=== PATIENT | male | born 1970 | race American Indian/Alaskan Native ===

== ENCOUNTER 2018-09-12 21:42 | Day surgery (SDC) | payer OTHER ==
[2018-09-12] MEDS ORDERED: Sodium Chloride 0.9% 1,000 ML IV ONE (22:17)
[2018-09-12] MEDS ORDERED: Ketorolac 30 MG/ML SDV IVPUSH ONE (22:17)
[2018-09-12] MEDS ORDERED: Ondansetron 4 MG/2 ML SDV IVPUSH ONE (22:17)
[2018-09-12] MEDS ORDERED: Sodium Chloride 0.9% 10 ML Syringe FLUSH PRN (22:17)
[2018-09-12] MEDS ORDERED: Sodium Chloride 0.9% 2.5 ML Syringe FLUSH PRN (22:17)
[2018-09-12] MEDS ORDERED: Morphine 2 MG/ML Syringe IVPUSH ONE (22:17)
--- NOTE | 2018-09-12 22:20 | EDM.PDOC ---
ED HPI GENERAL MEDICAL PROBLEM - General Chief Complaint: Abdominal Pain Stated Complaint: ABDOMINAL PAIN Time Seen by Provider: 09/12/18 22:04 - History of Present Illness INITIAL COMMENTS - FREE TEXT/NARRATIVE: HISTORY AND PHYSICAL: History of present illness: The patient is a 47-year-old male with no GI history and no abdominal surgical history who presents with onset of diarrhea and right lower quadrant pain that woke him from sleep this morning. The patient a complete normal day yesterday and slept fine and this morning woke up with the urge to have a bowel movement and he went into the toilet and had mushy diarrhea which was not black or bloody and sudden onset of right lower quadrant pain. He has had the pain all day and it has not changed in character and he has had a total of 6 episodes of diarrhea none of which was black or bloody that he can recall. He said no fever but has felt chilly and he has had nausea but no vomiting. He has no flank pain and no urinary symptoms. The patient had no recent trauma and no upper respiratory tract infections recently. He has no chest pain or shortness of breath and he does not feel dizzy or lightheaded. He has not tolerated much by mouth today because he has had no appetite due to the nausea and the pain. He tried [id number] Imodium for the diarrhea as well as Excedrin. Review of systems: As per history of present illness and below otherwise all systems reviewed and negative. Past medical history: As per history of present illness and as reviewed below otherwise noncontributory. Surgical history: As per history of present illness and as reviewed below otherwise noncontributory. Social history: No reported history of drug or alcohol abuse. Family history: As per history of present illness and as reviewed below otherwise noncontributory. Physical exam: General: Well-developed well-nourished man who is nontoxic but looks uncomfortable in the room. Vital signs are noted by me HEENT: Atraumatic, normocephalic, negative for conjunctival pallor or scleral icterus, mucous membranes tacky throat clear, neck supple, nontender, trachea midline. Lungs: Clear to auscultation, breath sounds equal bilaterally, chest nontender. Heart: S1S2, regular rate and rhythm no overt murmurs Abdomen: Soft, nondistended, bowel sounds are slightly hyperactive and there is no tympany. There is diffuse abdominal tenderness but is more exquisite in the right lower quadrant with some voluntary guarding but no rebound Negative for masses or hepatosplenomegaly. Negative for costovertebral tenderness. Pelvis: Stable nontender. Genitourinary: Deferred. Rectal: Deferred. Extremities: Atraumatic, negative for cords or calf pain. Neurovascular unremarkable. Neuro: Awake, alert, oriented. Cranial nerves II through XII unremarkable. Cerebellum unremarkable. Motor and sensory unremarkable throughout. Exam nonfocal. Diagnostics: CBC CMP lipase UA with reflex stool for culture if the patient produces CT scan of the abdomen and pelvis Therapeutics: IV placement IV fluids Zofran Toradol morphine Zosyn lactated Ringer's Patient currently is totally nursing that his pain is down to a 2/10 and he has not had it being any nausea or vomiting. We are currently awaiting his CT scan results and he has not produced any stool for study at this point. 0020: After CT scan results were obtained Dr. Maier was called and he will come in to see the patient and discuss surgery. The patient and at bedside are also aware of testing results and plan for surgery this evening. Zosyn will be given as well as lactated Ringer's Impression: Acute appendicitis Definitive disposition and diagnosis as appropriate pending reevaluation and review of above. RLQ abdomen Pain Score (Numeric/FACES): 8 - Related Data Allergies Allergy/AdvReac Type Severity Reaction Status Date / Time codeine Allergy Nausea and Verified 09/12/18 22:41 Vomiting Home Meds: Home Meds Multivitamin [Multivitamins] 1 cap PO DAILY 09/12/18 [History] Past Medical History - Past Health History Medical/Surgical History: Denies Medical/Surgical History Social & Family History - Family History Family Medical History: Noncontributory - Tobacco Use Smoking Status *Q: Never Smoker - Recreational Drug Use Recreational Drug Use: No ED ROS GENERAL - Review of Systems Review Of Systems: ROS reveals no pertinent complaints other than HPI. ED EXAM, GENERAL - Physical Exam Exam: See Below (See dictation) Course - Vital Signs Last Recorded V/S: Last Vital Signs Temp 36.6 C 09/12/18 23:45 Pulse 69 09/12/18 23:45 Resp 18 09/12/18 23:45 BP 128/81 09/12/18 23:45 Pulse Ox 98 09/12/18 23:45 - Orders/Labs/Meds Orders: Active Orders 24 hr Category Date Time Status Patient Status [ADT] Stat ADT 09/13/18 00:23 Ordered CULTURE STOOL + CAMPY+SHIGATOX [RM] Stat Lab 09/12/18 22:17 Ordered Lactated Ringers @ 150 MLS/HR(1,000ml) Med 09/13/18 00:30 Ordered Lactated Ringers [Ringers, Lactated] 1,000 ml IV ASDIRECTED Piperacillin/Tazobactam [Piperacil-Tazobact] 4.5 gm Med 09/13/18 00:20 Ordered Sodium Chloride 0.9% [Normal Saline] 100 ml IV ONETIME Sodium Chloride 0.9% [Saline Flush] Med 09/12/18 22:17 Active 10 ml FLUSH ASDIRECTED PRN Sodium Chloride 0.9% [Saline Flush] Med 09/12/18 22:17 Active 2.5 ml FLUSH ASDIRECTED PRN Saline Lock Insert [OM.PC] Stat Oth 09/12/18 22:17 Ordered Medication Orders Lactated Ringer's (Ringers, Lactated) 1,000 mls @ 150 mls/hr IV ASDIRECTED ZACARIAS Piperacillin Sod/Tazobactam (Sod 4.5 gm/ Sodium Chloride) 100 mls @ 100 mls/hr IV ONETIME ONE Stop: 09/13/18 01:19 Sodium Chloride (Saline Flush) 10 ml FLUSH ASDIRECTED PRN PRN Reason: Keep Vein Open Sodium Chloride (Saline Flush) 2.5 ml FLUSH ASDIRECTED PRN PRN Reason: Keep Vein Open Labs: Laboratory Tests 09/12/18 09/12/18 09/12/18 Range/Units 22:30 22:35 22:35 WBC 16.01 H (4.0-11.0) K/uL RBC 5.41 (4.50-5.90) M/uL Hgb 16.4 (13.0-17.0) g/dL Hct 47.9 (38.0-50.0) % MCV 88.5 (80.0-98.0) fL MCH 30.3 (27.0-32.0) pg MCHC 34.2 (31.0-37.0) g/dL RDW Std Deviation 43.6 (28.0-62.0) fl RDW Coeff of Deisy 14 (11.0-15.0) % Plt Count 291 (150-400) K/uL MPV 10.20 (7.40-12.00) fL Neut % (Auto) 82.9 H (48.0-80.0) % Lymph % (Auto) 8.4 L (16.0-40.0) % [place] % (Auto) 8.4 (0.0-15.0) % Eos % (Auto) 0.2 (0.0-7.0) % Baso % (Auto) 0.1 (0.0-1.5) % Neut # (Auto) 13.3 H (1.4-5.7) K/uL Lymph # (Auto) 1.3 (0.6-2.4) K/uL [place] # (Auto) 1.4 H (0.0-0.8) K/uL Eos # (Auto) 0.0 (0.0-0.7) K/uL Baso # (Auto) 0.0 (0.0-0.1) K/uL Nucleated RBC % 0.0 /100WBC Nucleated RBCs # 0 K/uL Sodium 140 (136-148) mmol/L Potassium 3.9 (3.5-5.1) mmol/L Chloride 103 (98-107) mmol/L Carbon Dioxide 26.9 (21.0-32.0) mmol/L BUN 13 (7.0-18.0) mg/dL Creatinine 1.1 (0.8-1.3) mg/dL Est Cr Clr Drug Dosing 95.84 mL/min Estimated GFR (MDRD) > 60.0 ml/min Glucose 122 H (74-106) mg/dL Calcium 8.9 (8.5-10.1) mg/dL Total Bilirubin 2.0 H (0.2-1.0) mg/dL AST 18 (15-37) IU/L ALT 53 (14-63) IU/L Alkaline Phosphatase 92 (46-116) U/L Total Protein 8.1 (6.4-8.2) g/dL Albumin 4.4 (3.4-5.0) g/dL Globulin 3.7 (2.6-4.0) g/dL Albumin/Globulin Ratio 1.2 (0.9-1.6) Lipase 70 L (73-393) U/L Urine Color YELLOW Urine Appearance CLEAR Urine pH 6.0 (5.0-8.0) Ur Specific [place] >= 1.030 (1.001-1.035) Urine Protein TRACE H (NEGATIVE) mg/dL Urine Glucose (UA) NEGATIVE (NEGATIVE) mg/dL Urine Ketones NEGATIVE (NEGATIVE) mg/dL Urine Occult Blood NEGATIVE (NEGATIVE) Urine Nitrite NEGATIVE (NEGATIVE) Urine Bilirubin SMALL H (NEGATIVE) Urine Ictotest NEGATIVE Urine Urobilinogen 0.2 (<2.0) EU/dL Ur Leukocyte Esterase NEGATIVE (NEGATIVE) Urine RBC 0-1 (0-2/HPF) Urine WBC 0-1 (0-5/HPF) Ur Epithelial Cells RARE (NONE-FEW) Urine Bacteria RARE (NEGATIVE) Meds: Medications Generic Name Dose Route Start Last Admin Trade Name Sandy PRN Reason Stop Dose Admin Lactated Ringer's 1,000 mls @ 150 mls/hr 09/13/18 00:30 Ringers, Lactated IV ASDIRECTED ZACARIAS Piperacillin Sod/Tazobactam 100 mls @ 100 mls/hr 09/13/18 00:20 Sod 4.5 gm/ Sodium Chloride IV 09/13/18 01:19 ONETIME ONE Sodium Chloride 10 ml 09/12/18 22:17 Saline Flush FLUSH ASDIRECTED PRN Keep Vein Open Sodium Chloride 2.5 ml 09/12/18 22:17 Saline Flush FLUSH ASDIRECTED PRN Keep Vein Open Discontinued Medications Generic Name Dose Route Start Last Admin Trade Name Sandy PRN Reason Stop Dose Admin Sodium Chloride 1,000 mls @ 999 mls/hr 09/12/18 22:17 09/12/18 22:41 Normal Saline IV 09/12/18 23:17 999 mls/hr STAT ONE Administration Iopamidol 100 ml 09/12/18 23:38 09/12/18 23:38 Isovue Multipack-370 (76%) IVPUSH 09/12/18 23:39 100 ml ONETIME STA Administration Ketorolac Tromethamine 30 mg 09/12/18 22:17 09/12/18 22:46 Toradol IVPUSH 09/12/18 22:18 30 mg ONETIME ONE Administration Morphine Sulfate 4 mg 09/12/18 22:17 09/12/18 22:46 Morphine IVPUSH 09/12/18 22:18 4 mg ONETIME ONE Administration Ondansetron HCl 4 mg 09/12/18 22:17 09/12/18 22:46 Zofran IVPUSH 09/12/18 22:18 4 mg ONETIME ONE Administration Departure - Departure Time of Disposition: 00:24 Disposition: Still A Patient 30 Condition: Good Clinical Impression: Appendicitis Qualifiers: Appendicitis type: acute appendicitis Acute appendicitis type: unspecified acute appendicitis type Qualified Code(s): K35.80 - Unspecified acute appendicitis - Discharge Information Referrals: Cece Doss, [facility] [employer] [Primary Care Provider] - Forms: ED Department Discharge - My Orders Last 24 Hours: My Active Orders 09/12/18 22:17 CULTURE STOOL + CAMPY+SHIGATOX [RM] Stat Sodium Chloride 0.9% [Saline Flush] 10 ml FLUSH ASDIRECTED PRN Sodium Chloride 0.9% [Saline Flush] 2.5 ml FLUSH ASDIRECTED PRN Saline Lock Insert [OM.PC] Stat 09/13/18 00:20 Piperacillin/Tazobactam [Piperacil-Tazobact] 4.5 gm Sodium Chloride 0.9% [ Normal Saline] 100 ml IV ONETIME 09/13/18 00:23 Patient Status [ADT] Stat 09/13/18 00:30 Lactated Ringers @ 150 MLS/HR(1,000ml) Lactated Ringers [Ringers, Lactated] 1, 000 ml IV ASDIRECTED - Assessment/Plan Last 24 Hours: My Active Orders 09/12/18 22:17 CULTURE STOOL + CAMPY+SHIGATOX [RM] Stat Sodium Chloride 0.9% [Saline Flush] 10 ml FLUSH ASDIRECTED PRN Sodium Chloride 0.9% [Saline Flush] 2.5 ml FLUSH ASDIRECTED PRN Saline Lock Insert [OM.PC] Stat 09/13/18 00:20 Piperacillin/Tazobactam [Piperacil-Tazobact] 4.5 gm Sodium Chloride 0.9% [ Normal Saline] 100 ml IV ONETIME 09/13/18 00:23 Patient Status [ADT] Stat 09/13/18 00:30 Lactated Ringers @ 150 MLS/HR(1,000ml) Lactated Ringers [Ringers, Lactated] 1, 000 ml IV ASDIRECTED
[2018-09-12 23:05] LABS: CHLORIDE,CL 103 mmol/L (98-107); SODIUM,NA 140 mmol/L (136-148)
[2018-09-12] MEDS ORDERED: Iopamidol 755 MG/ML 500 ML Multipack Bottle IVPUSH STA (23:38)
--- NOTE | 2018-09-13 00:07 | CT ---
INDICATION: Right lower quadrant pain TECHNIQUE: CT abdomen and pelvis acquired with IV contrast. 100 cc Isovue 370 COMPARISON: None FINDINGS: Lower chest: Unremarkable. Liver: Unremarkable. Spleen: Unremarkable. Pancreas: Unremarkable. Gallbladder and bile ducts: Unremarkable. Kidneys: Unremarkable. Adrenal glands: Unremarkable. GI tract: Unremarkable. Thick-walled and dilated appendix measuring up to 13 millimeters in diameter with periappendiceal fluid and fat stranding consistent with acute appendicitis. 12 millimeter proximal appendicolith noted. Vascular structures: Unremarkable. Lymph nodes: Unremarkable. Miscellaneous: Unremarkable. No free air or significant free fluid. Pelvic Organs: Unremarkable. Bones: Unremarkable for age. IMPRESSION: Findings consistent with acute appendicitis. Dictated by Shaggy Hawley MD @ 09/13/2018 12:06:01 AM Please note that all CT scans at this facility use dose modulation, iterative reconstruction, and/or weight-based dosing when appropriate to reduce radiation dose to as low as reasonably achievable. Dictated by: Shaggy Hawley MD @ 09/13/2018 00:06:07 (Electronically Signed)
[2018-09-13] MEDS ORDERED: Piperacillin/Tazobactam 4.5 GM in Sodium Chloride 0.9% 100 ML IV ONE (00:20)
[2018-09-13] MEDS ORDERED: Lactated Ringers 1,000 ML IV SCH ×3 (00:30→04:30)
[2018-09-13] MEDS ORDERED: Midazolam 1 MG/ML 2 ML SDV ONE ×2 (01:12→01:14)
[2018-09-13] MEDS ORDERED: Propofol 200 MG/20 ML SDV ONE (01:12)
[2018-09-13] MEDS ORDERED: fentaNYL 250 MCG/5 ML SDV ONE (01:12)
--- NOTE | 2018-09-13 01:15 | PCM.SN ---
- Free Text/Narrative Note: pt seen, chart reviewed, acute appy, would benefit from timely surg intervention ; proceed w appendectomy, lap vs open, rb dw pt re bleeding/infection/damage to nearby organs/postop course/pain management; of note, pt has a umb hernia, will need to be repair in the future; pt voiced understanding, proceed w surgery, iv abx, LR 150, shave, consent; [id number]
--- NOTE | 2018-09-13 01:29 | PCM.PREANE ---
Preanesthetic Assessment - Procedure Proposed Procedure: lap appendectomy - Anesthesia/Transfusion/Family Hx Anesthesia History: No Prior Anesthesia Family History of Anesthesia Reaction: No - Review of Systems General: No Symptoms Pulmonary: No Symptoms Cardiovascular: No Symptoms Gastrointestinal: Abdominal Pain Neurological: No Symptoms Other: Reports: Neck Pain - Physical Assessment O2 Sat by Pulse Oximetry: 96 Respiratory Rate: 18 Vital Signs: Last Vital Signs Temp 98 F 09/13/18 00:30 Pulse 68 09/13/18 00:30 Resp 18 09/13/18 00:30 BP 119/75 09/13/18 00:30 Pulse Ox 96 09/13/18 00:30 Height: 6 ft 1 in Weight: 101 kg ASA Class: 2E Mental Status: Alert & Oriented x3 Airway Class: Mallampati = 2 Dentition: Reports: Normal Dentition ROM/Head Extension: Full Lungs: Normal Respiratory Effort Cardiovascular: Regular Rate, Regular Rhythm - Lab Values: Laboratory Last Values WBC 16.01 K/uL (4.0-11.0) H 09/12/18 22:35 RBC 5.41 M/uL (4.50-5.90) 09/12/18 22:35 Hgb 16.4 g/dL (13.0-17.0) 09/12/18 22:35 Hct 47.9 % (38.0-50.0) 09/12/18 22:35 MCV 88.5 fL (80.0-98.0) 09/12/18 22:35 MCH 30.3 pg (27.0-32.0) 09/12/18 22:35 MCHC 34.2 g/dL (31.0-37.0) 09/12/18 22:35 RDW Std Deviation 43.6 fl (28.0-62.0) 09/12/18 22:35 RDW Coeff of Deisy 14 % (11.0-15.0) 09/12/18 22:35 Plt Count 291 K/uL (150-400) 09/12/18 22:35 MPV 10.20 fL (7.40-12.00) 09/12/18 22:35 Neut % (Auto) 82.9 % (48.0-80.0) H 09/12/18 22:35 Lymph % (Auto) 8.4 % (16.0-40.0) L 09/12/18 22:35 [place] % (Auto) 8.4 % (0.0-15.0) 09/12/18 22:35 Eos % (Auto) 0.2 % (0.0-7.0) 09/12/18 22:35 Baso % (Auto) 0.1 % (0.0-1.5) 09/12/18 22:35 Neut # (Auto) 13.3 K/uL (1.4-5.7) H 09/12/18 22:35 Lymph # (Auto) 1.3 K/uL (0.6-2.4) 09/12/18 22:35 [place] # (Auto) 1.4 K/uL (0.0-0.8) H 09/12/18 22:35 Eos # (Auto) 0.0 K/uL (0.0-0.7) 09/12/18 22:35 Baso # (Auto) 0.0 K/uL (0.0-0.1) 09/12/18 22:35 Nucleated RBC % 0.0 /100WBC 09/12/18 22:35 Nucleated RBCs # 0 K/uL 09/12/18 22:35 Sodium 140 mmol/L (136-148) 09/12/18 22:35 Potassium 3.9 mmol/L (3.5-5.1) 09/12/18 22:35 Chloride 103 mmol/L (98-107) 09/12/18 22:35 Carbon Dioxide 26.9 mmol/L (21.0-32.0) 09/12/18 22:35 BUN 13 mg/dL (7.0-18.0) 09/12/18 22:35 Creatinine 1.1 mg/dL (0.8-1.3) 09/12/18 22:35 Est Cr Clr Drug Dosing 95.84 mL/min 09/12/18 22:35 Estimated GFR (MDRD) > 60.0 ml/min 09/12/18 22:35 Glucose 122 mg/dL (74-106) H 09/12/18 22:35 Calcium 8.9 mg/dL (8.5-10.1) 09/12/18 22:35 Total Bilirubin 2.0 mg/dL (0.2-1.0) H 09/12/18 22:35 AST 18 IU/L (15-37) 09/12/18 22:35 ALT 53 IU/L (14-63) 09/12/18 22:35 Alkaline Phosphatase 92 U/L (46-116) 09/12/18 22:35 Total Protein 8.1 g/dL (6.4-8.2) 09/12/18 22:35 Albumin 4.4 g/dL (3.4-5.0) 09/12/18 22:35 Globulin 3.7 g/dL (2.6-4.0) 09/12/18 22:35 Albumin/Globulin Ratio 1.2 (0.9-1.6) 09/12/18 22:35 Lipase 70 U/L (73-393) L 09/12/18 22:35 Urine Color YELLOW 09/12/18 22:30 Urine Appearance CLEAR 09/12/18 22:30 Urine pH 6.0 (5.0-8.0) 09/12/18 22:30 Ur Specific [place] >= 1.030 (1.001-1.035) 09/12/18 22:30 Urine Protein TRACE mg/dL (NEGATIVE) H 09/12/18 22:30 Urine Glucose (UA) NEGATIVE mg/dL (NEGATIVE) 09/12/18 22:30 Urine Ketones NEGATIVE mg/dL (NEGATIVE) 09/12/18 22:30 Urine Occult Blood NEGATIVE (NEGATIVE) 09/12/18 22:30 Urine Nitrite NEGATIVE (NEGATIVE) 09/12/18 22:30 Urine Bilirubin SMALL (NEGATIVE) H 09/12/18 22:30 Urine Ictotest NEGATIVE 09/12/18 22:30 Urine Urobilinogen 0.2 EU/dL (<2.0) 09/12/18 22:30 Ur Leukocyte Esterase NEGATIVE (NEGATIVE) 09/12/18 22:30 Urine RBC 0-1 (0-2/HPF) 09/12/18 22:30 Urine WBC 0-1 (0-5/HPF) 09/12/18 22:30 Ur Epithelial Cells RARE (NONE-FEW) 09/12/18 22:30 Urine Bacteria RARE (NEGATIVE) 09/12/18 22:30 - Allergies Allergies/Adverse Reactions: Allergies Allergy/AdvReac Type Severity Reaction Status Date / Time codeine Allergy Nausea and Verified 09/12/18 22:41 Vomiting - Blood Blood Available: No Product(s) Available: None - Anesthesia Plan Pre-Op Medication Ordered: None - Acknowledgements Anesthesia Type Planned: General Anesthesia Pt an Appropriate Candidate for the Planned Anesthesia: Yes Alternatives and Risks of Anesthesia Discussed w Pt/Guardian: Yes Pt/Guardian Understands and Agrees with Anesthesia Plan: Yes PreAnesthesia Questionnaire - Past Health History Medical/Surgical History: Denies Medical/Surgical History - SUBSTANCE USE Smoking Status *Q: Never Smoker Recreational Drug Use History: No - HOME MEDS Home Medications: Home Meds Multivitamin [Multivitamins] 1 cap PO DAILY 09/12/18 [History] - CURRENT (IN HOUSE) MEDS Current Meds: Current Medications Lactated Ringer's (Ringers, Lactated) 1,000 mls @ 150 mls/hr IV ASDIRECTED ZACARIAS Last Admin: 09/13/18 00:29 Dose: 150 mls/hr Lactated Ringer's (Ringers, Lactated) 1,000 mls @ 125 mls/hr IV ASDIRECTED [facility] Sodium Chloride (Saline Flush) 10 ml FLUSH ASDIRECTED PRN PRN Reason: Keep Vein Open Sodium Chloride (Saline Flush) 2.5 ml FLUSH ASDIRECTED PRN PRN Reason: Keep Vein Open Discontinued Medications Fentanyl (Sublimaze) Confirm Administered Dose 250 mcg .ROUTE .STK-MED ONE Stop: 09/13/18 01:13 Sodium Chloride (Normal Saline) 1,000 mls @ 999 mls/hr IV STAT ONE Stop: 09/12/18 23:17 Last Admin: 09/12/18 22:41 Dose: 999 mls/hr Piperacillin Sod/Tazobactam (Sod 4.5 gm/ Sodium Chloride) 100 mls @ 100 mls/hr IV ONETIME ONE Stop: 09/13/18 01:19 Last Admin: 09/13/18 00:29 Dose: 100 mls/hr Iopamidol (Isovue Multipack-370 (76%)) 100 ml IVPUSH ONETIME STA Stop: 09/12/18 23:39 Last Admin: 09/12/18 23:38 Dose: 100 ml Ketorolac Tromethamine (Toradol) 30 mg IVPUSH ONETIME ONE Stop: 09/12/18 22:18 Last Admin: 09/12/18 22:46 Dose: 30 mg Midazolam HCl (Versed 1 Mg/Ml) Confirm Administered Dose 2 mg .ROUTE .STK-MED ONE Stop: 09/13/18 01:13 Midazolam HCl (Versed 1 Mg/Ml) Confirm Administered Dose 2 mg .ROUTE .STK-MED ONE Stop: 09/13/18 01:15 Morphine Sulfate (Morphine) 4 mg IVPUSH ONETIME ONE Stop: 09/12/18 22:18 Last Admin: 09/12/18 22:46 Dose: 4 mg Ondansetron HCl (Zofran) 4 mg IVPUSH ONETIME ONE Stop: 09/12/18 22:18 Last Admin: 09/12/18 22:46 Dose: 4 mg Propofol (Diprivan 20 Ml) Confirm Administered Dose 200 mg .ROUTE .STK-MED ONE Stop: 09/13/18 01:13
[2018-09-13] MEDS ORDERED: Bupivacaine 25%/EPINEPHrine/PF 30 ML ONE (01:30)
[2018-09-13] MEDS ORDERED: Dexamethasone 4 MG/ML 5 ML MDV ONE (02:21)
[2018-09-13] MEDS ORDERED: Glycopyrrolate 0.2 MG/ML SDV ONE (02:21)
[2018-09-13] MEDS ORDERED: Rocuronium 100 MG/10 ML Syringe ONE (02:21)
[2018-09-13] MEDS ORDERED: Ondansetron 4 MG/2 ML SDV ONE (02:21)
[2018-09-13] MEDS ORDERED: Neostigmine Methylsulfate 1 MG/ML 5 ML Syringe ONE (02:21)
[2018-09-13] MEDS ORDERED: fentaNYL 100 MCG/2 ML SDV IVPUSH PRN (02:28)
[2018-09-13] MEDS ORDERED: Promethazine 25 MG/ML SDV IM ONE (02:28)
[2018-09-13] MEDS ORDERED: HYDROmorphone 2 MG/ML SDV IVPUSH ONE (02:28)
[2018-09-13] MEDS ORDERED: Meperidine PF 25 MG/ML Syringe IVPUSH ONE (02:28)
[2018-09-13] MEDS ORDERED: Meperidine PF 25 MG/ML Syringe ONE (04:02)
--- NOTE | 2018-09-13 04:16 | PCM.OPNOTE ---
- General Post-Op/Procedure Note Date of Surgery/Procedure: 09/13/18 Operative Procedure(s): lap appy Findings: appendix is dilated and indulated, w appendicolith; microperforation noted; [id number] Pre Op Diagnosis: acute appendicitis Post-Op Diagnosis: Same Anesthesia Technique: General ET Tube Primary Surgeon: Syed Maier Pathology: sent Surgical Drain/Tube Type: Damion [place] Flat Drain Complications: None Condition: Fair
[2018-09-13] MEDS ORDERED: Ondansetron 4 MG/2 ML SDV IVPUSH PRN (04:18)
--- NOTE | 2018-09-13 04:22 | CONS ---
DATE OF CONSULTATION: 09/13/2018 DATE OF : 1970 PRIMARY CARE PHYSICIAN: Cece Doss NP This is a consult from Mally Bernard MD, in the emergency room. CONCERNING QUESTION: Appendicitis. HISTORY OF PRESENT ILLNESS: The patient is a 47 years old gentleman, complained of a 24-hour history of acute onset of abdominal pain, subsequently migrated to the right lower quadrant and also with diarrhea, and pain going on for 24 hours with no resolution. Sought help in the emergency room, got a CT scan which shows dilated appendix with dirty stranding periumbilical fat, and also appendicolith consistent with acute appendicitis. Surgery was then called. The patient denied prior episode and remarked the pain is 2/10. PAST MEDICAL HISTORY: Significant for no diabetes, AL, CVA, hypertension. PAST SURGICAL HISTORY: No abdominal surgery. ALLERGIES AND MEDICATION: Please refer to nursing notes for details. REVIEW OF SYSTEMS: Same as history of present illness. FAMILY HISTORY: Noncontributory. SOCIAL HISTORY: Denied tobacco or alcohol abuse. PHYSICAL EXAMINATION: GENERAL: A very pleasant gentleman, even laughing with the doctor while taking history. HEENT: Normocephalic and atraumatic. Sclerae are anicteric. LUNGS: Clear to auscultation. HEART: Regular rate and rhythm. ABDOMEN: Soft, nondistended. No pulsating, tender midline abdominal structure, and no surgical scar. Umbilical hernia with skin intact. Exquisite tenderness on the McBurney point. No rebound tenderness. Positive Rovsing sign. LABORATORY DATA: Upon consultation, white count 16, H and H are 16 and 48, and platelets are 291. Sodium 140, potassium 3.9, BUN 13, creatinine is 1.1, and glucose is high at 122. Total bilirubin is 2.0. AST and ALT are normal at 18 and 53, alkaline phosphatase is 92, albumin is 4.4. Urine is clean. No signs or symptoms of UTI. CAT scan as alluded to. Reading is acute appendicitis. IMPRESSION: Acute appendicitis clinically and consistent with imaging study. The patient will benefit from a timely surgical intervention. Risks and benefits discussed with the patient including bleeding, infection, and damage to nearby organs, and if perforated, may need drain placement and dressing change. The patient agreed. Of note, the patient has a pretty decent umbilical hernia, about 10 mm, and probably will need further surgical repair 6 months to 1 year from today. The patient and family concur and proceed with surgery. We will get a consent. We will put IV antibiotic, and give lactated Ringer 150 and proceed with surgery. As always, thank you for the kind referral. TRINI THEODORE /[id number]
[2018-09-13] MEDS ORDERED: Morphine 4 MG/ML Syringe IVPUSH PRN (04:32)
--- NOTE | 2018-09-13 04:52 | OR ---
SURGEON: Syed Maier MD DATE OF PROCEDURE: 09/13/2018 PREOPERATIVE DIAGNOSIS: Acute appendicitis. POSTOPERATIVE DIAGNOSIS: Acute appendicitis. PROCEDURE PERFORMED: Laparoscopic appendectomy with drain placement. COMPLICATION: None. FINDING: The appendix is very, very dilated and indurated and engulfed by surrounding organ requiring dissection to expose the appendix. There is 1 micro perforation. PROCEDURE IN DETAIL: The patient was taken to the operating room and placed in the supine position. Following induction of general endotracheal anesthesia, the patient's abdomen was prepped and draped in the sterile fashion. A time-out has been called. The patient was identified. The procedure was identified. The antibiotics were identified. The procedure then proceeded. The abdomen was prepped and draped in a standard fashion. After assessment of appropriate landmarks, a 12 millimeter trocar was inserted supraumbilically using Optiview and pneumoperitoneum was then achieved. This was followed with placement of 5 millimeter port in the right upper quadrant and another 5 millimeter port infraumbilically. The camera was inserted supraumbilical site and two laparoscopic Sylvester retractors were then inserted through the other two sites. Following the cecum, the appendix was located. The appendix was then lifted up, and using a GI stapler the appendix was amputated at the base. And using the GI stapler, the mesoappendix was then amputated. The appendix was retrieved by an endoscopic bag and sent for pathologist. This was then followed by re-insertion of the camera to examine the staple line, and hemostasis. The trocars were then removed. The umbilical site was closed with 2-0 Vicryl deep stitch and skin max, so did the other 2 5 mm port sites. A 10 MARIA LUZ drain was inserted through the lower port and anchored to the skin by 2-0 silk. Intraoperative findings as dictated above. The patient was then awakened, extubated, and transferred to the recovery room in hemodynamically stable condition. Prior to closing, sponge count and instrument count was correct. Dr. Maier was present throughout the whole procedure. As always, thank you for the kind referral. TRINI / EWELINA /[id number] TERESITA
[2018-09-13] MEDS: cefOXitin 1 GM in Premix Bag 1 BAG IV SCH ×2 (05:44→10:17)
[2018-09-13] MEDS: Lactated Ringers 1,000 ML IV SCH ×2 (05:53→09:01)
--- NOTE | 2018-09-13 06:34 | PCM.POSTAN ---
POST ANESTHESIA ASSESSMENT - MENTAL STATUS Mental Status: Alert - RESPIRATORY Respiratory Status: Respiratory Rate WNL, Airway Patent, O2 Saturation Stable - CARDIOVASCULAR CV Status: Pulse Rate WNL, Blood Pressure Stable - GASTROINTESTINAL GI Status: No Symptoms - POST OP HYDRATION Hydration Status: Adequate & Stable
[2018-09-13] MEDS: Acetaminophen/oxyCODONE 325-5 MG Tab PO PRN ×2 (08:48→14:29)
== END 2018-09-13 16:15 | disposition home or self-care (01) ==
LOC: MW.ED 21:42 → MW.SDS 09-13 00:23 → MW.MS 09-13 01:14 → MW.SDS 09-13 16:15
PROVIDERS: ATTEND Surgery
DX: K35.32 Acute appendicitis with perforation, localized peritonitis, and gangrene, without abscess (principal); Z88.5 Allergy status to narcotic agent
CPT/HCPCS: 36415; 44970; 74177; 80053; 81001; 83690; 85025; 88304; 96361; 96365; 96368; 96375; 99285; A4217; A9270; J0330; J0694; J1100; J1885; J2001; J2175; J2250; J2270; J2405; J2543; J2704; J3010; J3490; J7030; J7040; J7120; Q9967; 00840; 99284

== ENCOUNTER 2020-08-04 07:17 | Day surgery (SDC) | payer BC, OTHER ==
[~2020-08-04 07:17] MED LIST: Lactated Ringers 1,000 ML IV SCH; Sodium Chloride 0.9% 10 ML SDV IV PRN; Sodium Chloride 0.9% 10 ML Syringe FLUSH PRN; Sodium Chloride 0.9% 2.5 ML Syringe FLUSH PRN
[2020-08-04] MEDS ORDERED: Propofol 200 MG/20 ML SDV ONE (07:49)
[2020-08-04] MEDS ORDERED: fentaNYL 100 MCG/2 ML SDV ONE ×2 (07:49→08:28)
--- NOTE | 2020-08-04 07:49 | PCM.PREANE ---
Preanesthetic Assessment - Anesthesia/Transfusion/Family Hx Anesthesia History: Prior Anesthesia Without Reaction Family History of Anesthesia Reaction: No Transfusion History: No Prior Transfusion(s) - Review of Systems General: No Symptoms Pulmonary: No Symptoms Cardiovascular: No Symptoms Gastrointestinal: No Symptoms, Abdominal Pain, Other Neurological: No Symptoms Other: Reports: None - Physical Assessment NPO Status Date: 08/04/20 NPO Status Time: 00:05 Vital Signs: Last Vital Signs Temp 97.0 F 08/04/20 07:24 Pulse 70 08/04/20 07:24 Resp 15 08/04/20 07:24 BP 129/86 08/04/20 07:24 Pulse Ox 95 08/04/20 07:24 Height: 6 ft 2 in Weight: 225 lb ASA Class: 2 Mental Status: Alert & Oriented x3 Dentition: Reports: Normal Dentition ROM/Head Extension: Full Lungs: Clear to Auscultation, Normal Respiratory Effort Cardiovascular: Regular Rate, Regular Rhythm - Allergies Allergies/Adverse Reactions: Allergies Allergy/AdvReac Type Severity Reaction Status Date / Time hydrocodone Allergy Nausea Verified 07/29/20 12:01 - Anesthesia Plan Pre-Op Medication Ordered: None - Acknowledgements Anesthesia Type Planned: General Anesthesia Pt an Appropriate Candidate for the Planned Anesthesia: Yes Alternatives and Risks of Anesthesia Discussed w Pt/Guardian: Yes Pt/Guardian Understands and Agrees with Anesthesia Plan: Yes PreAnesthesia Questionnaire - Past Health History Medical/Surgical History: Denies Medical/Surgical History HEENT History: Reports: Other (See Below) Other HEENT History: wears glasses Cardiovascular History: Reports: None Respiratory History: Reports: None Gastrointestinal History: Reports: GERD Genitourinary History: Reports: None Musculoskeletal History: Reports: None Neurological History: Reports: None Psychiatric History: Reports: None Endocrine/Metabolic History: Reports: None Hematologic History: Reports: None Immunologic History: Reports: None Oncologic (Cancer) History: Reports: None Dermatologic History: Reports: None - Past Surgical History Head Surgeries/Procedures: Reports: None HEENT Surgical History: Reports: None Cardiovascular Surgical History: Reports: None Respiratory Surgical History: Reports: None GI Surgical History: Reports: Appendectomy Male Surgical History: Reports: None Endocrine Surgical History: Reports: None Neurological Surgical History: Reports: None Musculoskeletal Surgical History: Reports: None Oncologic Surgical History: Reports: None Dermatological Surgical History: Reports: None - SUBSTANCE USE Tobacco Use Status *Q: Former Tobacco User Tobacco Use Within Last Twelve Months: No - HOME MEDS Home Medications: Home Meds Acetaminophen [Tylenol] 2 tab PO ASDIRECTED PRN 07/29/20 [History] Ibuprofen 1 tab PO ASDIRECTED PRN 07/29/20 [History] Pantoprazole Sodium [Protonix] 40 mg PO DAILY 07/29/20 [History] - CURRENT (IN HOUSE) MEDS Current Meds: Current Medications Lactated Ringer's (Ringers, Lactated) 1,000 mls @ 125 mls/hr IV ASDIRECTED ZACARIAS Last Admin: 08/04/20 07:35 Dose: 125 mls/hr Documented by: Sodium Chloride (Sodium Chloride 0.9% 10 Ml Syringe) 10 ml FLUSH ASDIRECTED PRN PRN Reason: Keep Vein Open Sodium Chloride (Sodium Chloride 0.9% 2.5 Ml Syringe) 2.5 ml FLUSH ASDIRECTED PRN PRN Reason: Keep Vein Open Sodium Chloride (Sodium Chloride 0.9% 10 Ml Syringe) 10 ml FLUSH ASDIRECTED PRN PRN Reason: Keep Vein Open Sodium Chloride (Sodium Chloride 0.9% 2.5 Ml Syringe) 2.5 ml FLUSH ASDIRECTED PRN PRN Reason: Keep Vein Open Sodium Chloride (Sodium Chloride 0.9% 10 Ml Sdv) 10 ml IV ASDIRECTED PRN PRN Reason: IV Use
[2020-08-04] MEDS ORDERED: fentaNYL 100 MCG/2 ML SDV IVPUSH PRN (08:23)
[2020-08-04] MEDS ORDERED: Albuterol 0.083% 2.5 MG/3 ML Neb Soln NEB PRN (08:23)
[2020-08-04] MEDS ORDERED: Atropine 0.1 MG/ML 10 ML Syringe IVPUSH PRN ×2 (08:23)
[2020-08-04] MEDS ORDERED: Naloxone 0.4 MG/ML Syringe IVPUSH PRN (08:23)
[2020-08-04] MEDS ORDERED: 50% Dextrose in Water 50 ML Syringe IVPUSH PRN (08:23)
[2020-08-04] MEDS ORDERED: EPINEPHrine 1:10,000 1 MG/10 ML Syringe IVPUSH PRN (08:23)
[2020-08-04] MEDS ORDERED: HYDROmorphone 2 MG/ML Syringe IVPUSH PRN (08:28)
[2020-08-04] MEDS ORDERED: Labetalol 100 MG/20 ML MDV IVPUSH PRN (08:28)
--- NOTE | 2020-08-04 09:13 | PCM.OPNOTE ---
- General Post-Op/Procedure Note Date of Surgery/Procedure: 08/04/20 Operative Procedure(s): Diagnostic egd and screening colonoscopy Findings: Normal appearing esophagus, normal colonoscopy Pre Op Diagnosis: GERD, screening colonoscopy Post-Op Diagnosis: same Anesthesia Technique: MAC Primary Surgeon: Abiola Saldana Condition: Good
--- NOTE | 2020-08-04 09:20 | PCM.POSTAN ---
POST ANESTHESIA ASSESSMENT - MENTAL STATUS Mental Status: Alert (no anesthetic complications), Oriented - VITAL SIGNS Vital Signs: Last Vital Signs Temp 97.0 F 08/04/20 07:24 Pulse 51 L 08/04/20 09:12 Resp 12 08/04/20 09:12 BP 107/75 08/04/20 09:12 Pulse Ox 93 L 08/04/20 09:12 - RESPIRATORY Respiratory Status: Respiratory Rate WNL, Airway Patent, O2 Saturation Stable - CARDIOVASCULAR CV Status: Pulse Rate WNL, Blood Pressure Stable - GASTROINTESTINAL GI Status: No Symptoms - POST OP HYDRATION Hydration Status: Adequate & Stable
--- NOTE | 2020-08-04 09:42 | PCM48HPAN ---
Post Anesthesia Note - EVALUATION WITHIN 48HRS OF ANESTHETIC Patient Participated in Evaluation: Yes Respiratory Function Stable: Yes Airway Patent: Yes Cardiovascular Function Stable: Yes Hydration Status Stable: Yes Pain Control Satisfactory: Yes Nausea and Vomiting Control Satisfactory: Yes Mental Status Recovered: Yes Vital Signs: Last Vital Signs Temp 99.0 F 08/04/20 09:18 Pulse 58 L 08/04/20 09:18 Resp 16 08/04/20 09:18 BP 120/86 08/04/20 09:18 Pulse Ox 96 08/04/20 09:18 - COMMENTS/OBSERVATIONS Free Text/Narrative:: no anesthetic complications
--- NOTE | 2020-08-04 19:52 | OR ---
SURGEON: ABIOLA SALDANA MD DATE OF PROCEDURE: 08/04/2020 PREOPERATIVE DIAGNOSES: 1. Gastroesophageal reflux disease. 2. Screening colonoscopy. POSTOPERATIVE DIAGNOSES: 1. Gastroesophageal reflux disease. 2. Screening colonoscopy. PROCEDURE PERFORMED: Diagnostic esophagogastroduodenoscopy and screening colonoscopy. PRIMARY SURGEON: Endoscopist: Abiola Saldana MD. ANESTHESIA: MAC. INSTRUMENT USED: Olympus endoscope and colonoscope. EXTENT OF EXAM: To the second portion of duodenum, to the cecum. PREPARATION: Good. LIMITATIONS: None. INDICATIONS FOR EXAMINATION: The patient is a 49-year-old male with worsening GERD-like symptoms. He had an esophagram that showed mild esophageal dysmotility in the distal esophagus. He is currently on a PPI but feels this is not helping. He is due for a screening colonoscopy. The patient and I discussed the procedures, both the EGD as well as a screening colonoscopy. I explained the expected perioperative course and the risks. He verbalized understanding and wishes to proceed. PROCEDURE IN DETAIL: The patient was brought to the endoscopy suite and placed in a left lateral decubitus position. A time-out was completed verifying the patient's name, age, date of , allergies, and procedure to be performed. A bite block was placed in the patient's mouth. Monitored anesthesia care was induced and continuous oxygen was provided via face mask throughout the procedure. After adequate sedation was achieved, a well-lubricated endoscope was placed in the patient's mouth and advanced under direct visualization to the second portion of duodenum. This appeared normal, and a photograph was taken. The scope was then fully withdrawn while examining the color, texture, anatomy, and integrity of mucosa of the upper GI tract. The patient's duodenum appeared normal. The scope was brought into the stomach, and a photograph taken of the pylorus and GE junction. Both appeared anatomically normal. Biopsies were taken of the gastric antrum, body, and fundus and sent for histologic review and H. pylori testing. The gastric mucosa appeared normal with no evidence of inflammation or ulceration. The scope was then brought into the distal esophagus. The distal esophageal mucosa appeared normal. A biopsy was taken and sent to Pathology, labeled as esophagus. The remainder of the esophageal mucosa was free of pathology. The scope was removed, and this portion of procedure terminated. A digital rectal exam was performed. This exam was within normal limits. A well- lubricated colonoscope was inserted into the rectum and advanced under direct visualization to the level of the cecum. The cecum was identified by both visual and anatomic landmarks. A photograph was taken of the cecal cap as well as with the scope retroflexed within the cecum. The scope was then fully withdrawn while examining the color, texture, anatomy, and integrity of the mucosa from the cecum to the anal canal. The findings were consistent with normal colonic mucosa. The scope was then brought into the rectum and retroflexed to allow visualization of the anal canal opening. This appeared normal, and a photograph was taken. The scope was then straightened out and fully withdrawn. The cecum to anus time was 8 minutes. The patient tolerated the procedure well and was taken to PACU in stable condition. ENDOSCOPIC DIAGNOSES: Normal-appearing esophagogastroduodenoscopy, normal colonoscopy. RECOMMENDATIONS: I will switch the patient from pantoprazole to omeprazole daily. I will follow up on the results of the biopsies and discuss these with him in clinic and the next steps in treatment in 2 weeks. B[place] THEOD[place] /[id number]
== END 2020-08-04 10:00 | disposition home or self-care (01) ==
LOC: MW.SDS 07:17
PROVIDERS: ATTEND Surgery
DX: Z12.11 Encounter for screening for malignant neoplasm of colon (principal); K21.00 Gastro-esophageal reflux disease with esophagitis, without bleeding; K29.50 Unspecified chronic gastritis without bleeding; K43.2 Incisional hernia without obstruction or gangrene; F17.210 Nicotine dependence, cigarettes, uncomplicated; Z88.8 Allergy status to other drugs, medicaments and biological substances; Z79.899 Other long term (current) drug therapy; Z98.890 Other specified postprocedural states
CPT/HCPCS: 43239; 45378; 88305; 88312; J2704; J7120; J3010

== ENCOUNTER 2023-12-29 21:29 | Emergency (ER) | payer BC ==
[2023-12-29 22:06] LABS: BASOPHILS ABSOLUTE AUTO 0.06 K/uL (0.00-0.20); EOSINOPHILS ABSOLUTE AUTO 0.13 K/uL (0.00-0.45); EOSINOPHILS PERCENT AUTO 2.1 % (0.0-6.0); HEMATOCRIT 44.1 % (42.0-52.0); HEMOGLOBIN 14.8 g/dL (14.0-18.0); IMMATURE GRAN ABSOLUTE AUTO 0.01 K/uL (0.00-0.05); IMMATURE GRAN PERCENT AUTO 0.2 % (0.0-0.4); LYMPHOCYTES ABSOLUTE AUTO 2.53 K/uL (1.00-4.80); LYMPHOCYTES PERCENT AUTO 41.1 % (24.0-44.0); MEAN CORPUSCULAR HEMOGLOBIN 29.8 pg (28.0-32.0); MEAN CORPUSCULAR HGB CONC 33.6 g/dL (32.0-36.0); MEAN CORPUSCULAR VOLUME 88.9 fL (83.0-99.0); MEAN PLATELET VOLUME 10.2 fL (9.4-12.4); MONOCYTES ABSOLUTE AUTO 0.46 K/uL (0.00-0.80); MONOCYTES PERCENT AUTO 7.5 % (0.0-8.0); NEUTROPHILS ABSOLUTE AUTO 2.97 K/uL (1.80-7.70); NEUTROPHILS PERCENT AUTO 48.1 % (41.0-71.0); PLATELET COUNT,PLT 301 K/uL (150-400); RED BLOOD CELL COUNT 4.96 M/uL (4.52-5.90); WHITE BLOOD CELL COUNT,WBC 6.16 K/uL (3.9-11.3)
[2023-12-29] MEDS: Alum Hydro/Mag Hydro/Simeth XS 15 ML, Lidocaine 2% 5 ML PO ONE (22:11)
[2023-12-29] MEDS: Famotidine 20 MG/2 ML SDV IVPUSH ONE (22:11)
[2023-12-29] MEDS: Sodium Chloride 0.9% 10 ML Syringe FLUSH PRN (22:11)
[2023-12-29] MEDS: Sodium Chloride 0.9% 2.5 ML Syringe FLUSH PRN (22:12)
[2023-12-29 22:21] LABS: A/G RATIO 1.1 (0.9-1.6); BILIRUBIN TOTAL 0.8 mg/dL (0.2-1.0); CALCIUM 9.3 mg/dL (8.5-10.1); CREATININE 1.1 mg/dL (0.8-1.3); EST CRCL DRUG DOSING (CG) 89.79 mL/min; POTASSIUM,K 4.1 mmol/L (3.5-5.1); PROTEIN TOTAL,TP 7.5 g/dL (6.4-8.2)
== END 2023-12-29 23:13 | disposition home or self-care (01) ==
LOC: MW.ED 21:29
DX: R07.2 Precordial pain (principal); R07.89 Other chest pain; Z88.5 Allergy status to narcotic agent; Z90.49 Acquired absence of other specified parts of digestive tract
CPT/HCPCS: 36415; 71045; 80053; 84484; 85025; 93005; 96374; 99285; A9270; J3490; 93010; 99284

== ENCOUNTER 2024-06-12 09:40 | Day surgery (SDC) | payer BC, OTHER ==
[~2024-06-12 09:40] MED LIST changes: +Acetaminophen 1,000 MG in Premix Bag 1 BAG IV SCH; +Albuterol 0.083% 2.5 MG/3 ML Neb Soln NEB PRN; -Lactated Ringers 1,000 ML IV SCH; +Metoclopramide 10 MG/2 ML SDV IVPUSH PRN; +Morphine 2 MG/ML SYRINGE IVPUSH PRN; +Naloxone 0.4 MG/ML SDV IVPUSH PRN; +Ondansetron 4 MG/2 ML SDV IVPUSH PRN; +Phenylephrine HCl In 0.9% NaCl 1 MG/10 ML Syringe IVPUSH PRN; -Sodium Chloride 0.9% 10 ML SDV IV PRN; -Sodium Chloride 0.9% 10 ML Syringe FLUSH PRN; -Sodium Chloride 0.9% 2.5 ML Syringe FLUSH PRN; +ceFAZolin 2 GM in Sodium Chloride 0.9% 50 ML IV ONE; +fentaNYL 50 MCG/ML SDV IVPUSH PRN
[2024-06-12] MEDS ORDERED: Bupivacaine 0.5% 30 ML SDV ONE (10:05)
[2024-06-12] MEDS: Pregabalin 75 MG Cap PO SCH (10:09)
[2024-06-12] MEDS: Scopalamine 1mg/3day Transdermal Patch TOP ONE (10:09)
[2024-06-12] MEDS: Lactated Ringers 1,000 ML IV SCH (10:43)
[2024-06-12] MEDS ORDERED: fentaNYL 100 MCG/2 ML SDV ONE (10:55)
[2024-06-12] MEDS ORDERED: Propofol 200 MG/20 ML SDV ONE (10:55)
[2024-06-12] MEDS ORDERED: Dexamethasone 4 MG/ML 5 ML MDV ONE (10:56)
[2024-06-12] MEDS ORDERED: Ondansetron 4 MG/2 ML SDV ONE (10:56)
[2024-06-12] MEDS ORDERED: Lidocaine 1% 5 ML VIAL ONE (10:56)
[2024-06-12] MEDS ORDERED: Rocuronium Bromide 50 MG/5 ML Syringe ONE (10:56)
[2024-06-12] MEDS ORDERED: Ropivacaine 0.5% 5 MG/ML 30 ML SDV ONE (10:58)
[2024-06-12] MEDS ORDERED: Morphine 10 MG/ML SDV ONE (10:59)
[2024-06-12] MEDS ORDERED: Sodium Chloride 0.9% 20 ML ONE (10:59)
[2024-06-12] MEDS ORDERED: ceFAZolin 2 GM Vial ONE (11:27)
[2024-06-12] MEDS ORDERED: Ketorolac 30 MG/ML SDV ONE (11:28)
[2024-06-12] MEDS ORDERED: Sugammadex Sodium 200 MG/2 ML VIAL IV ONE (11:28)
[2024-06-12] MEDS: HYDROmorphone 1 MG/ML Syringe IVPUSH PRN (12:59)
== END 2024-06-12 15:00 | disposition home or self-care (01) ==
LOC: MW.SDS 09:40
PROVIDERS: ATTEND Surgery
DX: K42.9 Umbilical hernia without obstruction or gangrene (principal); I10 Essential (primary) hypertension; K21.9 Gastro-esophageal reflux disease without esophagitis; Z87.891 Personal history of nicotine dependence; Z79.899 Other long term (current) drug therapy; Z88.5 Allergy status to narcotic agent
CPT/HCPCS: 49591; 64488; A9270; J0131; J0665; J0690; J1100; J1171; J1885; J2272; J2405; J2704; J2795; J3010; J7120; C1781; J3490